=== PATIENT | female | born 1990 | race Caucasian/White ===

== ENCOUNTER 2019-02-19 18:14 | Emergency (ER) | payer OTHER ==
[~2019-02-19] VITALS: Ht 177.8 cm; Wt 102.1 kg
[2019-02-19 18:33] VITALS: BP 138/88
== END 2019-02-19 20:57 | disposition home or self-care (01) ==
LOC: ER 18:14 → EDBD 18:14 → ER 20:57
DX: R55 Syncope and collapse (principal); F41.9 Anxiety disorder, unspecified; R42 Dizziness and giddiness; R51 Headache
CPT/HCPCS: 70450